=== PATIENT | female | born 1985 | race Hispanic/Latino ===

== ENCOUNTER 2016-06-03 21:04 | Emergency (ER) | payer SELFPAY ==
[2016-06-04 03:49] LABS: Basophils % (Auto) 0.3 % (0.0-1.8); Eosinophils % (Auto) 1.1 % (0.0-4.3); Hemoglobin 14.4 gm/dl (10.1-14.3); Mean Corpuscular HGB Conc 33 % (30-34); Mean Corpuscular Hemoglobin 31 pg (28-32); Mean Corpuscular Volume 92 fl (79-97); Platelet Count 267 K/mm3 (140-440); Red Cell Distribution Width 14.4 % (13.2-15.2); White Blood Count 11.5 K/mm3 (4.5-11.0)
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
[2016-06-04 04:03] LABS: Urine Drugs of Abuse Note Disclamer
[2016-06-04 04:09] LABS: Alanine Aminotransferase 16 units/L (7-56); Albumin 3.9 g/dL (3.9-5); Albumin/Globulin Ratio 1.1 %; Alkaline Phosphatase 101 units/L (35-129); BUN/Creatinine Ratio 13.33; Bilirubin,Total < 0.2 mg/dL (0.1-1.2); Blood Urea Nitrogen 8 mg/dL (7-17); Carbon Dioxide 26 mmol/L (22-30); Chloride 102.9 mmol/L (98-107); Glucose 107 mg/dL (65-100); Potassium 4.2 mmol/L (3.6-5.0); Sodium 142 mmol/L (137-145); Total Protein 7.5 g/dL (6.3-8.2)
[2016-06-04 04:15] LABS: Anion Gap 17 mmol/L
[2016-06-04 04:17] LABS: Bilirubin,Urine NEG (Negative); Blood,Urine NEG (Negative); Ketones,Urine TR mg/dL (Negative); Leukocyte Esterase,Urine NEG (Negative); Mucus,Urine 3+ /HPF; Nitrite,Urine NEG (Negative); Protein,Urine <15 mg/dL mg/dL (Negative); Urobilinogen,Urine < 2.0 mg/dL (<2.0)
[2016-06-04] MEDS ORDERED: MUCINEX ER PO ONE (06:22)
[2016-06-04] MEDS ORDERED: LIDOCAINE VISCOUS 2% PO ONE (06:22)
[2016-06-04] MEDS ORDERED: MOTRIN PO ONE (06:22)
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
[2016-06-04] MEDS: TESSALON PERLES PO SCH ×3 (07:24→22:13)
--- NOTE | 2016-06-04 07:43 | XRay Report ---
ROUTINE CHEST, TWO VIEWS: PA and lateral views demonstrate the heart and mediastinal contour to be of normal size and shape. The lungs are clear and fully expanded and the soft tissues and bony structures are normal. IMPRESSION: Normal study.
[2016-06-04] MEDS ORDERED: TYLENOL PO PRN (10:49)
[2016-06-04] MEDS ORDERED: MILK OF MAGNESIA PO PRN (10:49)
[2016-06-04] MEDS ORDERED: ALUM-MAG HYDROX-SIMETH 200-200-20MG/5ML PO PRN (10:49)
[2016-06-04] MEDS ORDERED: NON-FORMULARY (Gabapentin [Neurontin] 600 MG) PO SCH (11:00)
[2016-06-04] MEDS: NEURONTIN PO SCH ×2 (14:47→21:48)
[2016-06-04] MEDS: ATIVAN IM PRN (18:45)
[2016-06-04] MEDS: NON-FORMULARY (Lurasidone Hcl [Latuda] 40 MG) PO SCH (22:08)
--- NOTE | 2016-06-05 05:59 | Event Note ---
Date: 06/05/16 Vital signs reviewed. Patient awaits psychiatric placement. Vital Signs 06/03/16 06/04/16 06/04/16 22:25 04:59 18:07 Temperature 97.6 F Pulse Rate 109 H Respiratory 18 18 16 Rate Blood Pressure 115/79 Blood Pressure [Left] O2 Sat by Pulse 100 Oximetry 06/04/16 06/04/16 18:29 20:09 Temperature 98.1 F 98.5 F Pulse Rate 89 96 H Respiratory 16 16 Rate Blood Pressure Blood Pressure 115/78 102/61 [Left] O2 Sat by Pulse 99 97 Oximetry
[2016-06-05] MEDS: NEURONTIN PO SCH ×3 (06:10→23:11)
[2016-06-05] MEDS: TESSALON PERLES PO SCH ×3 (06:11→23:10)
[2016-06-05] MEDS: NON-FORMULARY (Lurasidone Hcl [Latuda] 40 MG) PO SCH ×2 (10:44→23:11)
[2016-06-05] MEDS ORDERED: ATIVAN ONE (20:27)
[2016-06-05] MEDS: ATIVAN IM PRN (20:32)
[2016-06-06] MEDS: ATIVAN IM PRN ×3 (05:57→14:30)
[2016-06-06] MEDS: NEURONTIN PO SCH ×3 (06:02→22:28)
[2016-06-06] MEDS: TESSALON PERLES PO SCH ×3 (06:03→22:27)
[2016-06-06] MEDS: NON-FORMULARY (Lurasidone Hcl [Latuda] 40 MG) PO SCH (22:27)
[2016-06-07] MEDS: TESSALON PERLES PO SCH ×3 (07:03→21:33)
[2016-06-07] MEDS: NEURONTIN PO SCH ×3 (07:03→21:33)
[2016-06-07] MEDS: ATIVAN IM PRN ×2 (07:40→21:04)
[2016-06-07] MEDS: NON-FORMULARY (Lurasidone Hcl [Latuda] 40 MG) PO SCH ×3 (09:14→21:34)
[2016-06-08] MEDS: TESSALON PERLES PO SCH ×3 (06:11→22:00)
[2016-06-08] MEDS: NEURONTIN PO SCH ×3 (06:11→22:00)
[2016-06-08] MEDS: NON-FORMULARY (Lurasidone Hcl [Latuda] 40 MG) PO SCH (10:41)
--- NOTE | 2016-06-08 14:53 | Event Note ---
Date: 06/08/16 Vital signs reviewed. Await psychiatric placement. Vital Signs 06/03/16 06/04/16 06/04/16 22:25 04:59 18:07 Temperature 97.6 F Pulse Rate 109 H Respiratory 18 18 16 Rate Blood Pressure 115/79 Blood Pressure [Left] O2 Sat by Pulse 100 Oximetry 06/04/16 06/04/16 06/05/16 18:29 20:09 11:16 Temperature 98.1 F 98.5 F 97.6 F Pulse Rate 89 96 H 101 H Respiratory 16 16 18 Rate Blood Pressure Blood Pressure 115/78 102/61 111/77 [Left] O2 Sat by Pulse 99 97 97 Oximetry 06/05/16 06/06/16 06/06/16 23:15 08:02 08:28 Temperature 98.1 F 95.9 F L Pulse Rate 79 92 H Respiratory 18 16 14 Rate Blood Pressure Blood Pressure 98/63 94/68 [Left] O2 Sat by Pulse 96 97 97 Oximetry 06/06/16 06/07/16 06/08/16 23:44 07:15 08:05 Temperature 97.7 F Pulse Rate 89 Respiratory 18 18 18 Rate Blood Pressure Blood Pressure 108/59 [Left] O2 Sat by Pulse 98 98 98 Oximetry
[2016-06-08] MEDS: FLONASE NS SCH (22:00)
[2016-06-09] MEDS: NON-FORMULARY (Lurasidone Hcl [Latuda] 40 MG) PO SCH (00:16)
[2016-06-09] MEDS: TESSALON PERLES PO SCH (06:39)
[2016-06-09] MEDS: NEURONTIN PO SCH (06:39)
[2016-06-09] MEDS: FLONASE NS SCH (10:22)
[2016-06-09 13:40] VITALS: BP 107/65
== END 2016-06-09 14:00 ==
LOC: ED 21:04 → EEVIPCON 21:04 → ED 06-09 14:00
DX: R45.851 Suicidal ideations (principal); J06.9 Acute upper respiratory infection, unspecified; J02.9 Acute pharyngitis, unspecified; F31.9 Bipolar disorder, unspecified; F20.9 Schizophrenia, unspecified; F17.200 Nicotine dependence, unspecified, uncomplicated; F12.10 Cannabis abuse, uncomplicated; F15.10 Other stimulant abuse, uncomplicated
CPT/HCPCS: 36415; 71020; 80053; 80307; 81001; 84439; 84443; 84703; 85025; 87116; 87430; 96372; 99285; G0480; J2060; 80320